=== PATIENT | female | born 1955 | race Hispanic/Latino ===

== ENCOUNTER 2019-10-03 08:48 | Observation (INO) | payer BC ==
[2019-09-29 12:08] LABS: BASOPHILS % (AUTO) 0.4 % (0.0-5.0); EOSINOPHILS % (AUTO) 0.7 % (0.0-8.0); HEMATOCRIT 39.8 % (36-48); LYMPHOCYTES % (AUTO) 29.2 % (21.0-51.0); MEAN CORPUSCULAR HEMOGLOBIN 29.7 pg (27.0-33.0); MEAN CORPUSCULAR HGB CONC 32.4 g/dL (32.0-36.0); MEAN CORPUSCULAR VOLUME 91.7 fL (79-99); MONOCYTES % (AUTO) 6.9 % (3.0-13.0); NEUTROPHILS % (AUTO) 62.7 % (40.0-77.0); PLATELET COUNT (AUTO) 177 K/uL (130-400); RED BLOOD CELL COUNT(AUTO) 4.34 MIL/uL (4.00-5.50); RED CELL DISTRIBUTION WIDTH 13.4 % (11.0-15.5); WHITE BLOOD COUNT (AUTO) 7.1 K/uL (4.8-10.8)
[2019-09-29 12:40] LABS: CREATININE 0.7 mg/dL (0.5-1.5); POTASSIUM 3.8 mmol/L (3.5-5.1)
[2019-09-29 13:39] VITALS: BP 170/80
[~2019-10-03] VITALS: Ht 144.8 cm; Wt 60.9 kg
[2019-10-03] VITALS (23 sets, daily range): BP systolic 122–194; BP diastolic 52–88
[2019-10-03] MEDS: CEFAZOLIN SODIUM 1 GM VIAL IVP SCH ×2 (06:00→11:35)
[~2019-10-03 08:48] MED LIST: LISI-617 PO; SIMV10TA97 PO
[2019-10-03] MEDS ORDERED: SODIUM CHLORIDE 0.9% 1000ML 1,000 ML IV ONE (09:20)
[2019-10-03] MEDS ORDERED: FAMOTIDINE/PF 20 MG/2 ML VIAL IV ONE ×2 (09:43→18:07)
[2019-10-03] MEDS ORDERED: DEXAMETHASONE SOD PHOSPHATE 10MG/ML 1ML VIAL ONE (11:32)
[2019-10-03] MEDS ORDERED: LIDOCAINE PF 2% 5ML ABBOJECT ONE (11:32)
[2019-10-03] MEDS ORDERED: MIDAZOLAM HCL 1 MG/ML 2ML VIAL ONE (11:32)
[2019-10-03] MEDS ORDERED: ONDANSETRON HCL 4 MG/2 ML VIAL ONE (11:33)
[2019-10-03] MEDS ORDERED: FENTANYL CITRATE PF 50 MCG/1 ML 2ML VIAL ONE (11:33)
[2019-10-03] MEDS ORDERED: PROPOFOL 10 MG/ML 20ML VIAL IV ONE (11:33)
[2019-10-03] MEDS ORDERED: ROCURONIUM 10MG/1ML SYR 10 MG/ML ML ONE (11:50)
[2019-10-03] MEDS ORDERED: EPHEDRINE SULFATE 50 MG/ML AMPULE ONE (11:54)
[2019-10-03] MEDS ORDERED: GLYCOPYRROLATE 1 MG/5 ML SYRINGE ONE (13:44)
[2019-10-03] MEDS ORDERED: NEOSTIGMINE 5MG/5ML SYR IV ONE (13:44)
[2019-10-03] MEDS ORDERED: MORPHINE SULFATE 2 MG/ML 1ML SYG IV PRN (14:00)
[2019-10-03] MEDS ORDERED: MORPHINE SULFATE 4 MG/1ML SYG IV PRN (14:00)
[2019-10-03] MEDS ORDERED: ACETAMINOPHEN 325 MG TAB PO PRN (14:00)
[2019-10-03] MEDS ORDERED: ONDANSETRON HCL 4 MG/2 ML VIAL IVP PRN (14:00)
[2019-10-03] MEDS ORDERED: HYDRALAZINE HCL 20 MG/ML VIAL ONE (14:11)
[2019-10-03] MEDS ORDERED: MEPERIDINE-PF 25 MG/ML SYG ONE (14:14)
[2019-10-03] MEDS ORDERED: MORPHINE SULFATE 4 MG/1ML SYG ONE (14:37)
[2019-10-03] MEDS ORDERED: KETOROLAC TROMETHAMINE 30MG/ML ONE (14:44)
[2019-10-03] MEDS ORDERED: ENALAPRILAT DIHYDRATE 1.25MG/ML 1ML VIAL IV ONE (15:01)
--- NOTE | 2019-10-03 15:03 | NUR ---
PT COMPLAINS OF CHEST PRESSURE TO THE RIGHT. ROSANGELA CALDERÓN NOTIFIED. ROSANGELA CALDERÓN TO SEE PT. Addendum: 10/03/19 at 1508 by JYOTSNA RAZO RN RN Amended: Links added.
[2019-10-03] MEDS ORDERED: NITROGLYCERIN 1GM/1 INCH PACKET TD ONE (15:07)
[2019-10-03] MEDS ORDERED: METOCLOPRAMIDE 10 MG/2 ML VIAL ONE (15:10)
[2019-10-03] MEDS ORDERED: LABETALOL HCL 5 MG/ML 20ML VIAL IV ONE (15:24)
--- NOTE | 2019-10-03 15:29 | NUR ---
LABETALOL 5MG IVP GIVEN AT THIS TIME. NOT 100 DOCUMENTED ON EMAR. Addendum: 10/03/19 at 1530 by JYOTSNA RAZO RN RN Amended: Links added.
[2019-10-03] MEDS: SODIUM CHLORIDE 0.9% 1000ML 1,000 ML IV SCH (16:51)
[2019-10-03] MEDS: FAMOTIDINE/PF 20 MG/2 ML VIAL IV SCH (18:11)
[2019-10-03] MEDS: ACETAMINOPHEN-CODEINE 300/30MG TAB PO PRN (20:43)
[2019-10-03] MEDS ORDERED: SIMVASTATIN 10 MG TABLET PO SCH (21:00)
[2019-10-03] MEDS ORDERED: LISINOPRIL 5 MG TABLET PO SCH (21:00)
[2019-10-04 03:00] VITALS: BP 120/52
[2019-10-04] MEDS: SODIUM CHLORIDE 0.9% 1000ML 1,000 ML IV SCH (03:12)
--- NOTE | 2019-10-04 05:00 | NUR ---
PATIENT AWAKE AND ALERT. VOICES ALL NEEDS. MEDICATED FOR PAIN PER [facility]. VITALS STABLE. AFEBRILE. RESP EVEN AND UNLABORED. NO SOB NOTED. ON ROOM AIR. PULLING 1250ML OF INSPIRED AIR TO IS. NS INFUSING AT 75ML/HR. NO NAUSEA OR VOMITING NOTED. HOB ELEVATED. REPOSITIONED FOR COMFORT. DRESSING TO RIGHT BREAST DRY AND INTACT. OSCAR DRAINS X2 PATENT AND DRAINING SANGUINOUS FLUID. SON AT BEDSIDE. NO SIGNS OF DISTRESS NOTED. CALL LIGHT WITHIN REACH. WILL CONTINUE TO BE OBSERVED, Addendum: 10/04/19 at 0634 by JORGE ALBERTO WINSLOW RN RN Amended: Links added.
[2019-10-04] MEDS: ACETAMINOPHEN-CODEINE 300/30MG TAB PO PRN ×2 (05:16→09:46)
[2019-10-04 08:00] VITALS: BP 120/58
[2019-10-04] MEDS: FAMOTIDINE/PF 20 MG/2 ML VIAL IV SCH (09:45)
[2019-10-04 11:45] VITALS: BP 136/64
[2019-10-04] MEDS ORDERED: ACET1TAB12 PO (11:50)
== END 2019-10-04 13:35 | disposition home or self-care (01) ==
LOC: DAH 08:48 → 4CH 08:49
PROVIDERS: ADMIT Surgery; ATTEND Surgery
DX: C50.911 Malignant neoplasm of unspecified site of right female breast (principal); E11.9 Type 2 diabetes mellitus without complications; K21.9 Gastro-esophageal reflux disease without esophagitis; E78.5 Hyperlipidemia, unspecified; I10 Essential (primary) hypertension; E66.3 Overweight; Z79.899 Other long term (current) drug therapy; Z68.29 Body mass index [BMI] 29.0-29.9, adult
CPT/HCPCS: 19307; 36415; 80048; 82948 ×5; 85025; 96374; 96375; 96376 ×2; A4215; A4221; A4222; A4223; A4606; A4663; A6260; G0378 ×17; J0360; J0690; J1100; J1885; J2001; J2175; J2250; J2270; J2405 ×2; J2704; J2710; J2765; J3010; J3490 ×8; J7030 ×2